=== PATIENT | male | born 2005 | race Caucasian/White ===

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

== ENCOUNTER 2023-05-12 18:14 | Emergency (ER) | payer OTHER ==
[~2023-05-12] VITALS: Ht 170.2 cm; Wt 50.0 kg
[~2023-05-12 18:14] MED LIST changes: +CEPH-558 PO; +MOXI3DRO25 OU; -OFLO35OS OD; +OFLO5DRO49 OD
[2023-05-12 18:16] VITALS: TEMP 98.3
[2023-05-12 19:07] LABS: BASOPHILS % (AUTO) 0.8 % (0.0-2.0); EOSINOPHILS % (AUTO) 0.3 % (1.0-6.0); HEMATOCRIT 39.1 % (41-53); HEMOGLOBIN 13.3 g/dL (13.5-17.5); LYMPHOCYTES # (AUTO) 2.2 K/uL (1.0-4.8); LYMPHOCYTES % (AUTO) 41.7 % (22.0-44.0); MEAN CORPUSCULAR HGB CONC 34.1 G/dL (31.0-37.0); MEAN CORPUSCULAR VOLUME 91 fL (80-100); MONOCYTES # (AUTO) 0.5 K/uL (0.1-1.0); MONOCYTES % (AUTO) 10.1 % (2.0-9.0); NEUTROPHILS # (AUTO) 2.5 K/uL (1.8-7.7); NEUTROPHILS % (AUTO) 47.1 % (40.0-70.0); PLATELET COUNT (AUTO) 177 K/uL (150-450); RED CELL DISTRIBUTION WIDTH 13.6 % (11.5-14.5); WHITE BLOOD COUNT (AUTO) 5.3 K/uL (4.5-11.0)
[2023-05-12 19:15] LABS: ANION GAP 9 mmol/L (8-16); CALCIUM, TOTAL 9.3 mg/dL (8.8-10.5); CARBON DIOXIDE 29 mmol/L (22-29); CHLORIDE 101 mmol/L (98-107); CREATININE 0.84 mg/dL (0.60-1.30); GLOMERULAR FILTR. RATE CALC > 60 mL/min (>60); GLUCOSE,RANDOM 83 mg/dL (70-110); POTASSIUM 3.5 mmol/L (3.5-5.1); SODIUM SERUM 139 mmol/L (136-145); UREA NITROGEN, BLOOD 16 mg/dL (7-18)
[2023-05-12] MEDS: MAG HYDROX/ALUMINUM HYD/SIMETH 30 ML SUSPENSION UDCUP PO ONE (19:15)
[2023-05-12] MEDS: ACETAMINOPHEN 325 MG TABLET PO ONE (19:16)
[2023-05-12] MEDS: FAMOTIDINE 20 MG/2 ML VIAL IVP ONE (19:16)
[2023-05-12] MEDS: KETOROLAC TROMETHAMINE 30 MG/ML VIAL IVP ONE (19:16)
[2023-05-12 19:21] LABS: ALANINE AMINOTRANSFERASE 66 U/L (12-78); ALBUMIN 4.4 g/dL (3.4-5.0); ALKALINE PHOSPHATASE 93 U/L (46-116); ASPARTATE AMINOTRANSFERASE 23 U/L (15-37); BILIRUBIN,TOTAL 0.7 mg/dL (0.1-1.0); LIPASE 31 U/L (16-77); TOTAL PROTEIN, SERUM 7.6 g/dL (6.4-8.2)
[2023-05-12] MEDS ORDERED: IOHEXOL 350 MG/ML 100 ML VIAL ONE (19:44)
[2023-05-12] MEDS ORDERED: SODIUM CHLORIDE 0.9% 100 ML ONE (19:44)
[2023-05-12 20:15] VITALS: BP 132/74; PULSE 70; RESP 14
== END 2023-05-12 20:48 | disposition home or self-care (01) ==
LOC: EMS 18:50
DX: R10.12 Left upper quadrant pain (principal); R10.32 Left lower quadrant pain; F12.90 Cannabis use, unspecified, uncomplicated
CPT/HCPCS: 99285; 74177; 96374; 96375; 80053; 83690; 85025; 36415; J3490; J1885; Q9967; J7050

== ENCOUNTER 2023-11-15 11:02 | Emergency (ER) | payer OTHER ==
[~2023-11-15] VITALS: Ht 170.2 cm; Wt 50.0 kg
[~2023-11-15 11:02] MED LIST changes: -CEPH-558 PO; +FAMO20 PO; -MOXI3DRO25 OU; -OFLO5DRO49 OD; +ONDA-104 PO
[2023-11-15 11:20] LABS: COVID AG,FIA SOURCE NASAL SWAB
[2023-11-15 11:39] VITALS: BP 132/85; PULSE 84; RESP 16; TEMP 97.6; O2SAT 97
[2023-11-15 11:44] LABS: INFLUENZA TYPE A NEGATIVE FOR TYPE A (NEGATIVE); INFLUENZA TYPE B NEGATIVE FOR TYPE B (NEGATIVE); SARS-COV2 (COVID) ANTIGEN,FIA Negative (Negative)
[2023-11-15] MEDS: IBUPROFEN 600 MG TABLET PO ONE (11:55)
[2023-11-15] MEDS: OXYMETAZOLINE HCL 0.05% 15 ML NASAL SPRAY NASAL ONE (11:57)
[2023-11-15] MEDS ORDERED: IBUP-1492 PO (12:15)
== END 2023-11-15 13:28 | disposition home or self-care (01) ==
LOC: EMS 11:02
DX: J06.9 Acute upper respiratory infection, unspecified (principal); R51.9 Headache, unspecified; R50.9 Fever, unspecified; J45.909 Unspecified asthma, uncomplicated; F12.90 Cannabis use, unspecified, uncomplicated; Z20.822 Contact with and (suspected) exposure to COVID-19
CPT/HCPCS: 87804; 99283